=== PATIENT | female | born 1955 | race Two or more races ===

== ENCOUNTER → 2017-05-04 | Outpatient (CLI) | payer OTHER ==
[2015-01-29 11:29] VITALS: BP 118/60
[~2017-05-04] MED LIST: AMLO5TAB2 PO; DOCU-109 PO; HYDR-963 PO; LOSA50TA6 PO
--- NOTE | 2017-05-04 14:52 | RAD ---
Right knee, 2 views, 05/04/2017: History: Knee pain There is mild spurring at the knee joint and at the patellofemoral articulation. No fracture or dislocation is identified. No significant joint effusion is seen. IMPRESSION: 1. Mild degenerative change. 2. No acute abnormality is detected.
--- NOTE | 2017-05-04 14:53 | RAD ---
Lumbar spine, 2 views, 05/04/2017: History: Low back pain There is disc space narrowing throughout the lumbar spine, most severe at L3-4, L4-5 and L5-S1. There is endplate sclerosis at these levels with moderate marginal spurring. There are moderate degenerative changes involving the facet joints in the lower lumbar spine. No acute fracture or dislocation is identified. Aortic calcific plaquing is present. IMPRESSION: 1. Moderate multilevel degenerative change. 2. No acute bony abnormality is detected.
== END | disposition home or self-care (01) ==
LOC: RAD 11:36
PROVIDERS: ATTEND Surgery
DX: M17.11 Unilateral primary osteoarthritis, right knee (principal); M47.896 Other spondylosis, lumbar region
CPT/HCPCS: 72100; 73560

== ENCOUNTER 2017-10-19 10:45 | Emergency (ER) | payer SELFPAY, OTHER ==
[2017-10-19] MEDS: methylPREDNISolone ACETATE 80 MG/ML VIAL. INJ (11:46)
== END 2017-10-19 11:45 | disposition home or self-care (01) ==
LOC: ER 10:45
DX: M17.12 Unilateral primary osteoarthritis, left knee (principal); G89.29 Other chronic pain; I10 Essential (primary) hypertension; Z88.0 Allergy status to penicillin; Z79.891 Long term (current) use of opiate analgesic
CPT/HCPCS: 96372; 99283-25; J1040

== ENCOUNTER → 2018-03-29 | Outpatient (CLI) | payer OTHER | END | disposition home or self-care (01) | LOC: MAMMO 11:00 | DX: Z12.31 Encounter for screening mammogram for malignant neoplasm of breast (principal) | CPT/HCPCS: 77067 ==

== ENCOUNTER → 2018-06-16 | Outpatient (CLI) | payer OTHER ==
[2017-10-19 10:55] VITALS: BP 167/100
[~2018-06-16] MED LIST changes: -AMLO5TAB2 PO; +AMLO5TAB7 PO; +DICL50TA4 PO; +IOHEXOL 180 MG/ML 10 ML VIAL. ONE; +LEVO100T5 PO; +LIDOCAINE 2% PF 2ML VIAL. ONE; -LOSA50TA6 PO; +LOSA50TA7 PO; +methylPREDNISolone ACETATE 40 MG/ML VIAL. ONE; +methylPREDNISolone ACETATE 80 MG/ML VIAL. ONE
--- NOTE | 2018-06-16 13:25 | PAIN ---
DATE OF SERVICE: 06/16/2018 INITIAL CONSULTATION FOR PAIN CLINIC CHIEF COMPLAINT: Neck and bilateral upper extremity pain as well as low back and bilateral lower extremity pain. HISTORY OF PRESENT ILLNESS: The patient is a 62-year-old female who presents with history of pain in the base of the neck and shoulders as well as the low back and the left shoulder and right knee for many years. The patient reports about 11 years or so it has been going on. She was controlling her pain with hydrocodone for several years, but decided that she did not want to take this medication anymore and stopped about 3 years ago. The patient reports the pain has gotten worse in the base of the neck and shoulders. She has had some x-rays of these areas, just plain films with mild degenerative change in the lumbar spine with vacuum disk phenomena at L3-L4 and L5-S1, lesser degree degenerative disk disease at L4-L5 and L2-L3. Cervical spine showing mild degenerative change as well, minimal anterolisthesis at C6-C7 on T1 with minimal retrolisthesis of C4 on C5, C5 on C6, and C6 on C7, degenerative endplate remodeling with osteophytosis at C4 through C7 as well. The patient did have a film of the shoulder on the left without any bony abnormalities with some mild degenerative change at the acromioclavicular joint. The patient reports she has had physical therapy, which was only minimally helpful and felt better while she is having the therapy but after that, the pain returned to its baseline, this is for her neck as well as her low back. The patient reports she is currently doing exercises and doing stretching and strengthening exercises daily, likes to walk, although the low back pain is limiting this to some extent, but she is still doing it. The patient reports it awakens her from sleep about 2-3 times a night, mostly with her neck and the disturb as well. She reports no bowel or bladder loss of control. The patient reports her disability rating from 0-10, 10 being the worst, is a 7 with family and home responsibilities and social activity, 10 with recreation, occupation and sexual behavior, 6 with self care and 4 with life support activities. The patient reports no loss of motor function, but significant fatigability of the legs with walking bilaterally, right equal to left as well as at the left shoulder with any reaching overhead, stretching, reaching forward, weightbearing, carrying or lifting items with her left arm compared to the right. PAST MEDICAL HISTORY: Significant for hearing loss, hypertension, arthritis. PREVIOUS SURGERIES: Include tubal ligation and umbilical hernia repair. CURRENT MEDICATIONS: Include losartan, Levotrin and amlodipine. SOCIAL HISTORY: The patient does not drink alcohol. Does smoke cigarettes, less than a pack a day. She is , lives with her spouse and 3 children living at home. Does not use any illegal, illicit or recreational drugs or other substances. FAMILY HISTORY: Negative for any contributing diseases or conditions. PHYSICAL EXAMINATION: VITAL SIGNS: The patient's blood pressure is 147/85, pulse 74, respirations 16, temperature 98.7 degrees Fahrenheit, height is 5 feet 3 inches, weight is 200 pounds. GENERAL: The patient is awake, alert, oriented, appropriate, very pleasant demeanor. HEENT: Head shows normocephalic, atraumatic. Extraocular movements are intact and symmetrical. Oral cavity: Mucous membranes are moist and pink. Dentition is intact. NECK: Shows anterior throat supple without palpable lymphadenopathy noted. Swallow reflex is symmetrical. CHEST: Shows normal on inspection. Breath sounds are clear to auscultation bilaterally. HEART: Shows S1, S2 clear. No murmurs auscultated. ABDOMEN: Obese, soft, nontender, nondistended. No palpable organomegaly is noted. No rebound or guarding demonstrated. MUSCULOSKELETAL: Back shows spine grossly in the midline. Normal appearing thoracic kyphosis and lumbar lordotic curvature. Lumbar paraspinous muscle shows symmetrical on inspection, on palpation has some moderate tenderness diffusely throughout the upper, middle and lower distribution of the paraspinous muscles, but is symmetric without evidence of atrophy or hypertrophy. No trigger points No tenderness over the spinous processes, sacrum or sacroiliac regions. The patient has good rotational motion of lumbar spine, both laterally as well as extension and flexion without difficulty or pain reported. Neck shows posterior cervical musculature is symmetrical on inspection bilaterally, with palpation shows some very mild tenderness diffusely in the inferior aspect of the cervical paraspinous muscles as well as superior medial trapezius bilaterally, slightly worse on the left than the right, but again without asymmetry, no trigger points. No atrophy, hypertrophy or radiation. The patient has good rotational motion of the cervical spine, past 45 degrees right and left, closer to 90 degrees without difficulty as well as full extension, full forward flexion without pain reported. The patient's upper extremities show deep tendon reflexes 2+ in the biceps and triceps tendons. Motor exam is strong with frame coverer strength rated at 5/5 as is bicep and tricep flexion. Peripheral pulses are 2+ radial distribution. Lower extremities show deep tendon reflexes 1+ in the patellar and tendo-calcaneus tendons. Motor exam is strong with 5/5 dorsiflexion, extension, quadriceps and hamstring flexion and symmetrical. Peripheral pulses are 1+ posterior tibia. No peripheral edema is noted bilaterally. Skin shows warm and dry, good turgor. No edema. No sores, rashes or bruising. The patient is able to stand, stand on her toes without difficulty or loss of balance. Walks with a normal-appearing gait, does not appear to favor the right or left lower extremity to a significant degree and is not using any assistive devices to ambulate. IMPRESSION: 1. This is a 62-year-old female with long history about 11 years or so of pain in the base of the neck and upper extremities, more on the left than the right with radiating pain into the shoulders and arm. 2. Low back pain with degenerative disk change and radiating pain into the lateral and anterior thighs as well as the posterior gluteus in a radicular fashion as well. 3. Left shoulder pain. 4. X-rays of cervical spine, lumbar spine, shoulder exam as noted. 5. Hypertension. 6. Arthritis. PLAN: Options were discussed with the patient including conservative medical management, physical therapies, interventional techniques and she has performed physical therapy at this time and doing exercise on her own without significant improvement. She would like to pursue interventional techniques. We discussed a cervical epidural steroid injection as her neck and shoulder and upper extremity pain seems to be the worse at this time using description as well as anatomical models to describe the procedure. Risks were then discussed including, but not limited to bleeding, infection, possibility of epidural hematoma, subsequent neurologic compromise, dural puncture, headaches, spinal cord and/or nerve damage, side effects of steroid medication and poor results regarding pain control. The patient understands and wished to proceed. The patient will return to the clinic in approximately 2 weeks for followup, was counseled on return appointment, activity level and side effects to be aware of. DIAGNOSIS: Cervical radiculopathy with cervical degenerative disk disease. PROCEDURE: Cervical epidural steroid injection, translaminar approach at C6-C7 level using C-arm fluoroscopic guidance under sterile prep and drape using local anesthetic. MEDICATION INJECTED: A total of 120 mg Depo-Medrol plus 5 mL of preservative-free normal saline and 2 mL of Isovue for contrast. CONDITION AT DISCHARGE: Stable. The patient tolerated the procedure well, had no complications. JOLIE MOORE MD DR: HUAN/carlyle JOB#: [id number] / [id number] KOJO Dan
== END | disposition home or self-care (01) ==
LOC: PNCL 09:14
PROVIDERS: ATTEND Anesthesiology
DX: M50.123 Cervical disc disorder at C6-C7 level with radiculopathy (principal); I10 Essential (primary) hypertension; M19.90 Unspecified osteoarthritis, unspecified site; H91.90 Unspecified hearing loss, unspecified ear; Z98.890 Other specified postprocedural states; Z98.51 Tubal ligation status; Z79.899 Other long term (current) drug therapy; F17.210 Nicotine dependence, cigarettes, uncomplicated
CPT/HCPCS: 62321; J1030; J1040; J2001; Q9965

== ENCOUNTER → 2018-10-04 | Outpatient (CLI) | payer OTHER ==
[2017-10-19 10:55] VITALS: BP 167/100
[~2018-10-04] MED LIST changes: +HYDR-3135 PO; -HYDR-963 PO; -IOHEXOL 180 MG/ML 10 ML VIAL. ONE; -LIDOCAINE 2% PF 2ML VIAL. ONE; +LOSA-73 PO; -LOSA50TA7 PO; -methylPREDNISolone ACETATE 40 MG/ML VIAL. ONE; -methylPREDNISolone ACETATE 80 MG/ML VIAL. ONE
--- NOTE | 2018-10-04 13:17 | RAD ---
DATE: 10/04/2018 11:30 AM EXAM: DIGITAL DIAGNOSTIC BILATERAL HISTORY: further evaluation of a finding noted on her most recent screening mammographic examination. On that examination several nodular densities are seen bilaterally. COMPARISON: Prior mammographic imaging 03/29/2018 Bilateral full field craniocaudal, laterally exaggerated craniocaudal and mediolateral oblique images were obtained using digital technique. In addition spot compression view in the slightly lateral left breast was performed This study was interpreted with the benefit of Computerized Aided Detection (CAD ). Breast Density: The breast parenchyma is primarily fatty replaced. Breast parenchyma level density A. FINDINGS: Benign calcifications are present. A few small well-circumscribed nodular densities are seen bilaterally within the breasts, grossly stable to prior mammogram 03/22/2017. No suspicious masses, microcalcifications or architectural distortion is present to suggest malignancy in either breast. The visualized axillae are unremarkable. IMPRESSION: No mammographic evidence of malignancy. BI-RADS CATEGORY: 2 BENIGN FINDING(S) RECOMMENDED FOLLOW-UP: 12M 12 MONTH FOLLOW-UP Annual screening mammography is recommended, unless clinically indicated sooner based on symptoms or change in physical exam. PQRS compliance statement: Patient information was entered into a reminder system with a target due date 10/04/2019 for the next mammogram. Mammography is a sensitive method for finding small breast cancers, but it does not detect them all and is not a substitute for careful clinical examination. A negative mammogram does not negate a clinically suspicious finding and should not result in delay in biopsying a clinically suspicious abnormality. "Our facility is accredited by the [employer] Mammography Program." [facility]
== END | disposition home or self-care (01) ==
LOC: MAMMO 08:59
PROVIDERS: ATTEND Physician Assistant Surgical
DX: R92.8 Other abnormal and inconclusive findings on diagnostic imaging of breast (principal)
CPT/HCPCS: 77066